=== PATIENT | male | born 1995 | race Caucasian/White ===

== ENCOUNTER 2017-12-28 19:00 | Emergency (ER) | payer MEDICAID ==
[~2017-12-28] VITALS: Ht 172.7 cm; Wt 73.0 kg
[2017-12-28] MEDS ORDERED: SODIUM CHLOR 0.9% 1000 ML INJ 1,000 ML IV ONE (19:08)
[2017-12-28 19:10] VITALS: BP 153/89; PULSE 85; RESP 16; TEMP 98.9; O2SAT 96
[2017-12-28 19:12] VITALS: RESP 16; O2SAT 96
--- NOTE | 2017-12-28 19:12 | PD ---
HPI Chief Complaint: OD/ Ingestion Time Seen by Provider: 19:07 Travel History International Travel<30 days: No Contact w/Intl Traveler<30days: No History of Present Illness HPI Patient is a 22-year-old male presenting to emergency department for evaluation after an accident overdose on heroin. Patient states it was a first time he has never used it. He was found in the parking lot, EMS was likely called by bystander or his dealer. Initially he was agonal breathing with an O2 sat in the 60s. He was given Narcan and Zofran by EMS. Patient currently denies any chest pain, abdominal pain, headache, depression, suicidal ideations. He denies any significant past medical history. Symptom onset was sudden, symptoms are exacerbated by heroin use, symptoms were alleviated with Narcan. [facility] Past Medical History Medical History: Denies Significant Hx Social History Alcohol Use: Yes Tobacco Use: Yes Substance Use: Yes Allergies-Medications (Allergen,Severity, Reaction): Coded Allergies: No Known Allergies (Unverified , 12/28/17) Reported Meds & Prescriptions Reported Meds & Active Scripts Active No Active Prescriptions or Reported Medications Review of Systems Except as stated in HPI: all other systems reviewed are Neg Physical Exam Narrative GENERAL: Well-developed, well-nourished, alert male. Presenting in no acute distress. SKIN: Warm and dry. HEAD: Atraumatic. Normocephalic. EYES: Pupils equal and round. No scleral icterus. No injection or drainage. ENT: No nasal bleeding or discharge. Mucous membranes pink and moist. NECK: Trachea midline. No JVD. CARDIOVASCULAR: Regular rate and rhythm. RESPIRATORY: No accessory muscle use. Clear to auscultation. Breath sounds equal bilaterally. GASTROINTESTINAL: Abdomen soft, non-tender, nondistended. Hepatic and splenic margins not palpable. MUSCULOSKELETAL: Extremities without clubbing, cyanosis, or edema. No obvious deformities. NEUROLOGICAL: Awake and alert. No obvious cranial nerve deficits. Motor grossly within normal limits. Five out of 5 muscle strength in the arms and legs. Normal speech. PSYCHIATRIC: Appropriate mood and affect; insight and judgment normal. Data Data Last Documented VS Vital Signs Date Time Temp Pulse Resp B/P (MAP) Pulse Ox O2 Delivery O2 Flow Rate FiO2 12/28/17 19:12 16 96 Room Air 12/28/17 19:10 98.9 85 153/89 (110) Orders Orders Electrocardiogram (12/28/17 19:08) Iv Access Insert/Monitor (12/28/17 19:08) Ecg Monitoring (12/28/17 19:08) Oximetry (12/28/17 19:08) Sodium Chloride 0.9% Flush (Ns Flush) (12/28/17 19:15) Sodium Chlor 0.9% 1000 Ml Inj (Ns 1000 M (12/28/17 19:08) Blood Glucose (12/28/17 21:28) MDM Medical Decision Making Medical Screen Exam Complete: Yes Emergency Medical Condition: Yes Interpretation(s) Vital Signs Date Time Temp Pulse Resp B/P (MAP) Pulse Ox O2 Delivery O2 Flow Rate FiO2 12/28/17 19:12 16 96 Room Air 12/28/17 19:10 98.9 85 16 153/89 (110) 96 Differential Diagnosis Accidental overdose versus respiratory failure versus metabolic abnormality versus cardiac arrhythmia versus other Narrative Course Patient is a 22-year-old male presenting to the emergency department for evaluation after what appeared to be an accidental overdose from heroin. Patient was administered 0.4 mg of Narcan IV by EMS, he was alert and awake on arrival. Patient is vital signs are stable. Initial EKG shows sinus rhythm. Patient was observed in the emergency department for 3 hours, he is ambulating, alert, oriented. Discussed with my attending physician. Patient will be discharged home. He was encouraged to avoid use of illicit substances. He was encouraged to follow-up with Osmani Johnson. He was encouraged to return to emergency department for any new or worsening symptoms. Patient verbalized understanding of these instructions. Patient stable for discharge. Diagnosis Primary Impression: Accidental overdose of heroin Qualified Codes: T40.1X1A - Poisoning by heroin, accidental (unintentional), initial encounter Referrals: [facility] Patient Instructions: General Instructions, Narcotic Abuse (ED) Additional Instructions: Follow-up with Osmani Johnson Avoid use of illicit substances Return to emergency department for any new or worsening symptoms Med/Other Pt SpecificInfo: No Change to Meds Scripts No Active Prescriptions or Reported Meds Disposition: 01 DISCHARGE HOME Condition: Stable Emmy Guajardofrederick VICK Dec 28, 2017 19:12
[2017-12-28] MEDS ORDERED: SODIUM CHLORIDE 0.9% FLUSH 10 ML FLUSH IVF PRN (19:15)
[2017-12-28 22:12] VITALS: BP 142/72; PULSE 69; RESP 18; O2SAT 95
--- NOTE | 2017-12-29 12:18 | EKG ---
Date Performed: 12/28/2017 Time Performed: 19:19:23 PTAGE: 22 years EKG: Sinus rhythm POSSIBLE LEFT ATRIAL ENLARGEMENT MODERATE INTRAVENTRICULAR CONDUCTION DELAY BORDERLINE ECG NO PREVIOUS TRACING DOCTOR: Julio Hart Interpretating Date/Time 12/29/2017 12:16:08
== END 2017-12-28 22:33 | disposition home or self-care (01) ==
LOC: NEPC 19:00
DX: T40.1X1A Poisoning by heroin, accidental (unintentional), initial encounter (principal); Z72.0 Tobacco use
CPT/HCPCS: 93005; 99284; J7030